=== PATIENT | female | born 1950 | race Caucasian/White ===

== ENCOUNTER 2021-09-13 08:23 | Day surgery (SDC) | payer OTHER ==
[2021-09-11 16:03] VITALS: BMI 42.1
[2021-09-13] MEDS ORDERED: PROPOFOL 20 ML ONE ×4 (08:39)
[2021-09-13] MEDS ORDERED: LIDOCAINE HCL/PF 2% SDV 5ML VIAL ONE (08:39)
[2021-09-13 10:24] VITALS: TEMP 97
[2021-09-13 10:41] VITALS: BP 127/66; PULSE 75
== END 2021-09-13 10:53 | disposition home or self-care (01) ==
LOC: FASU-ENDO 08:23
PROVIDERS: ATTEND Internal Medicine Gastroenterology
PROC: 0DJD8ZZ Inspection of Lower Intestinal Tract, Via Natural or Artificial Opening Endoscopic (ICD-10-PCS; principal; 2021-09-13 09:58)
DX: Z12.11 Encounter for screening for malignant neoplasm of colon (principal); K64.1 Second degree hemorrhoids; K57.30 Diverticulosis of large intestine without perforation or abscess without bleeding
CPT/HCPCS: 82962